=== PATIENT | female | born 1975 | race Caucasian/White ===

== ENCOUNTER 2016-07-07 18:48 | Emergency (ER) | payer OTHER ==
[~2016-07-07] VITALS: Ht 160 cm; Wt 67.9 kg
[~2016-07-07 18:48] MED LIST: ATARAX,VISTARIL50 MG PO; BACTRIM,SEPT1 TABLET PO; CETIRIZINE HCL10 MG PO; CLINDAMYCIN HC300 MG PO; D-VERT25 MG PO; DICYCLOMINE HCL10 MG PO; DURAGESIC50 MCG TD; FENTANYL1 EACH TD; GABAPENTIN300 MG PO; LAMOTRIGINE200 MG; LEVOTHYROXINE25 MCG PO; LIDOCAINE20 MG/1 M5 PO; LITHIUM CARBON300 MG NG; LITHIUM CARBON450 MG PO; LORAZEPAM0.5 MG PO; MAXALT10 MG PO; MECLIZINE HCL25 M3 PO; MIRAPEX0.5 MG PO; NEXIUM40 MG PO; ORAL ANESTHETIC7 GM BC; PREDNISONE20 MG PO; PREMARIN0.45 MG PO; PROMETHAZINE HC25 M1 PO; PROZAC10 MG PO; PROZAC20 MG PO; PYRIDIUM200 MG PO; SALINE NASAL SP45 ML NS; SYNTHROID,LEVO0.5 MG IM; TEGRETOL200 MG PO; TRAZODONE HCL50 MG PO; ULTRACET1 TABLET PO; WELCHOL625 MG PO; XANAX0.5 MG PO; ZYRTEC10 M2 PO
[2016-07-07 20:04] LABS: HEMATOCRIT 39.2 % (36.0-46.0); MCH 29.1 PG (29.0-34.0); MCHC 33.9 G/DL (30.0-36.0); MCV 85.8 FL (83-99); MEAN PLAT.VOLUME 8.7 uM^3 (9.5-12.4); PLATELET COUNT 331 K/uL (156-360); RBC DIS.WIDTH-CV 12.1 % (11.8-14.6); RBC DIS.WIDTH-SD 36.4 % (39-53); RED BLOOD COUNT 4.57 M/uL (3.80-5.20); WHITE BLOOD COUNT 10.3 K/uL (4.1-10.2)
[2016-07-07 20:20] LABS: CHLORIDE 109 mEq/L (99-109); POTASSIUM 3.9 mEq/L (3.7-5.4); SODIUM 141 mEq/L (136-147)
[2016-07-07 20:21] LABS: GLUCOSE 117 mg/dL (70-99)
[2016-07-07 20:23] LABS: ANION GAP 10 MEQ/L (2-14)
[2016-07-07 20:25] LABS: GFR ESTIMATE (CALCULATED) > 59 mL/min/
[2016-07-07 20:26] LABS: UREA NITROGEN (BUN) 7 mg/dL (9-23)
[2016-07-07 20:28] LABS: TROP-I INTERPRETATION NEGATIVE; TROPONIN-I < 0.01 ng/mL (0.0-0.30)
[2016-07-07 21:09] LABS: D-DIMER ELISA 0.25 mg/L FEU (< 0.57)
[2016-07-07] MEDS ORDERED: NAPROXEN500 MG PO (21:32)
[2016-07-07 21:48] VITALS: BP 110/77
== END 2016-07-07 21:48 | disposition home or self-care (01) ==
LOC: EME 18:48
DX: R07.89 Other chest pain (principal); R00.0 Tachycardia, unspecified; G89.29 Other chronic pain; Z79.891 Long term (current) use of opiate analgesic; Z77.22 Contact with and (suspected) exposure to environmental tobacco smoke (acute) (chronic); Z79.890 Hormone replacement therapy
CPT/HCPCS: 71020; 80048; 84484; 85027; 85379; 93005; 99281; 99284; J8540